=== PATIENT | female | born 1940 | race Caucasian/White ===

== ENCOUNTER 2017-03-11 19:28 | Inpatient (IN) | payer MEDICARE, OTHER ==
[~2017-03-11] VITALS: Ht 160 cm; Wt 92.6 kg
[~2017-03-11 19:28] MED LIST: ABILIFY10 MG PO; ALENDRONATE SOD70 M1 PO; ALLEGRA180 MG PO; AMBIEN10 M1 PO; AMBIEN10 MG PO; AMITIZA8 MCG PO; AMITRIPTYLINE50 MG PO; APLISOL5 TU/0.1 M ID; ASPI-COR81 M1 PO; ASPIRIN ADULT L81 M1 PO; ASPIRIN81 M1; ASPIRIN81 M1 PO; ATIVAN0.5 MG PO; ATIVAN1 MG PO; AUGMENTIN 875 M1 TA1 PO; AUGMENTIN 875 M1 TAB PO; AURALGAN 14 ML14 ML OT; BACTRIM DS 8001 TA1 PO; BACTROBAN OINT0.9 GM PO; BACTROBAN2% TP; BENICAR40 MG PO; BENTYL20 MG; BRIN10TA PO; BRIN20TA PO; CARAFATE1 G1 PO; CARAFATE1 GM PO; CEFEPIME1 GM IV; CEFTRIAXONE1 GM IV; CELEXA10 MG PO; CIPRO XR500 MG PO; CIPRO250 MG PO; CIPRO500 MG PO; CIPRODEX 0.3%-7.5 ML OT; CIPROFLOXACIN500 MG PO; CLONIDINE0.3 MG PO; COLACE100 MG PO; COREG25 MG; COREG25 MG PO; COREG3.125 MG PO; COREG6.25 MG PO; DARVOCET N 1001 TAB PO; DIPHENHYDRAMINE25 M1 PO; DULCOLAX10 MG R; ERYTHROMYCIN250 MG PO; FLEET ENEMA 13135 ML R; GABAPENTIN300 MG PO; GLUCERNA 1.5 C237 ML PO; GLUCOSAMINE & C1 TE1 PO; HALDOL1 MG; HALDOL1 MG PO; HUMULIN; HUMULIN SC; K-DUR 1010 MEQ; K-DUR 1010 MEQ PO; K-Dur 20MEQ20 MEQ PO; LASIX40 MG; LASIX40 MG PO; LEVAQUIN250 MG PO; LEVEMIR100 U/ML SC; LEVOTHYROXINE0.05 MG PO; LISINOPRIL2.5 MG PO; LISINOPRIL20 MG PO; LISINOPRIL40 MG; LISINOPRIL40 MG PO; LISINOPRIL5 MG PO; MACROBID100 M1 PO; MACRODANTIN100 MG PO; MEGACE40 MG PO; MELATONIN3 M1 PO; MIRALAX POWDER17 G1 PO; MIRALAX17 GM/DOSE PO; MIRALAX17 GM/PACK PO; MOM30 M1 PO; MOM30 ML; MOM30 ML PO; MOTRIN400 MG PO; MS CONTIN15 MG PO; Motrin,Rufen800 MG PO; NEURONTIN100 MG PO; NOVOLIN 701 UNIT/0.0 PO; NOVOLIN 701 UNIT/0.0 SC; NOVOLIN R100 U/ML; NOVOLIN R100 U/ML SC; NOVOLOG 701 UNIT/0.0 SC; NOVOLOG1 UNIT/0.0 SC; NS IV; NYSTATIN CREAM15 GM T; NYSTATIN OINTME30 GM PO; OMEPRAZOLE D/R20 MG PO; OMNICEF300 MG PO; OXYBUTYNIN CHLOR5 MG PO; OXYBUTYNIN5 MG PO; OYSTER SHELL CA PO; Ondansetron4 MG PO; PAMELOR25 MG PO; PANTOPRAZOLE40 M1 PO; PHOSPHA 250 NEU1 TAB PO; PRILOSEC40 MG PO; PROSTAT PO; PROTONIX40 MG; PROTONIX40 MG PO; Phenergan25 MG PO; REGLAN; REGLAN10 MG; REGLAN10 MG PO; REGLAN5 MG PO; REMERON15 MG; REMERON15 MG PO; SEROQUEL XR50 MG PO; STRESS TABLETS1 TAB PO; SYNTHROID,LEVO75 MCG PO; SYNTHROID0.05 MG PO; SYNTHROID0.3 MG PO; Synthroid,Lev200 MCG; Synthroid,Lev200 MCG PO; TIGAN300 MG PO; TIROSINT50 MCG PO; TRAMADOL HCL50 MG PO; TRANSDERM0.33 MG/24 T; TRAZODO50 MG PO; TYLENOL500 MG PO; ULTRAM50 MG PO; VICODIN 5/500 505 MG; VICODIN 5/500 505 MG PO; VITAMIN D3 PO; VITAMIN D5000 I2; VITAMIN D5000 I2 PO; WELLBUTRIN XL300 MG PO; Wellbutrin Xl150 MG PO; XANAX0.25 MG PO; ZOFRAN ODT4 MG SL; ZOFRAN4 MG PO; ZOLOFT100 MG PO; ZOLOFT50 MG PO; Zestril,Prinivi40 MG PO; Zofran4 MG PO; [UNRECOGNIZED DRUG - CODE]; [UNRECOGNIZED DRUG - CODE] PO; [UNRECOGNIZED DRUG - OTHER]; [UNRECOGNIZED DRUG - OTHER] IV; [UNRECOGNIZED DRUG - OTHER] PO; [UNRECOGNIZED DRUG - OTHER] PO; [UNRECOGNIZED DRUG - REMARK]
[2017-03-11 19:50] LABS: BILIRUBIN NEGATIVE (NEGATIVE); BLOOD 2+ (NEGATIVE); CLARITY CLOUDY (CLEAR); COLOR YELLOW (YELLOW); GLUCOSE NEGATIVE (NEGATIVE); KETONE NEGATIVE (NEGATIVE); LEUKO ESTERASE 2+ (NEGATIVE); NITRITE NEGATIVE (NEGATIVE); PROTEIN 2+ (NEGATIVE); SPECIFIC GRAVITY 1.025 (1.005-1.030); UROBILINOGEN 0.2 E.U./dl (0.2-1.0)
[2017-03-11 19:59] LABS: URINE REFLEX COMMENT YES (NO)
[2017-03-11 20:00] LABS: BACTERIA 3+; WBC 51-100 wbc/hpf (0-5)
[2017-03-11 20:48] VITALS: BP 149/91
[2017-03-11 20:52] LABS: BASO # 0.1 10*3/uL (0.0-0.1); BASO % 0.5 % (0.0-1.0); EOS # 0.1 10*3/uL (0.0-0.4); EOS % 0.8 % (1.0-4.0); HEMATOCRIT 44.3 % (37.0-47.0); HEMOGLOBIN 14.1 g/dl (12.0-16.0); IG # 0.1 10*3/uL (0.0-0.1); LYMPH # 1.9 10*3/uL (1.3-4.4); LYMPH % 12.7 % (27.0-41.0); MEAN CELL VOLUME 81.6 fl (81.0-99.0); MEAN CORPUSCULAR HGB CONC 31.8 g/dl (33.0-37.0); MEAN PLATELET VOLUME 11.3 fl (9.6-12.3); MONO # 0.8 10*3/uL (0.1-1.0); MONO % 5.6 % (3.0-9.0); NEUT % 79.9 % (47.0-73.0); PLATELET COUNT AUTOMATED 169 10*3/uL (130-400); RED BLOOD COUNT 5.43 10*6/uL (4.10-5.10); RED CELL DISTRI WIDTH 15.1 % (0-14.5); WHITE BLOOD COUNT 15.1 10*3/uL (4.8-10.8)
[2017-03-11] MEDS ORDERED: ATIVAN0.5 MG PO (20:52)
[2017-03-11] MEDS ORDERED: LIPITOR10 MG PO (20:53)
[2017-03-11] MEDS ORDERED: KLONOPIN0.5 MG PO (20:54)
[2017-03-11] MEDS ORDERED: LEVEMIR10 ML SC (20:55)
[2017-03-11 21:09] LABS: ALKALINE PHOSPHATASE 112 U/L (45-117); BILIRUBIN, TOTAL 0.6 mg/dl (0.2-1.0); BUN 13 mg/dl (7-24); CARBON DIOXIDE 26 mmol/L (21-32); CHLORIDE 100 mmol/L (98-107); EST GLOM FILT AFRICAN AMERICAN > 60 ml/min; GLUCOSE 184 mg/dL (65-99); POTASSIUM 4.8 mmol/L (3.5-5.1); SGOT/AST 36 IU/L (3-35); SGPT/ALT 17 U/L (12-78); SODIUM 136 mmol/L (136-145); TOTAL PROTEIN 7.2 gm/dL (6.4-8.2)
[2017-03-11] MEDS ORDERED: FAMOTIDINE40 MG PO (21:18)
[2017-03-11 22:54] VITALS: BP 112/49
[2017-03-12 00:30] VITALS: BP 162/68
[2017-03-12] MEDS ORDERED: CELEXA20 MG PO (01:01)
[2017-03-12] MEDS ORDERED: MELATONIN PO (01:02)
[2017-03-12] MEDS ORDERED: SYNTHROID,LEV175 MCG PO (01:05)
[2017-03-12] MEDS ORDERED: K-LOR 20MEQ20 ME1 PO (01:07)
[2017-03-12] MEDS ORDERED: VITAMIN D5000 I3 PO (01:08)
[2017-03-12 05:58] LABS: BASO # 0.1 10*3/uL (0.0-0.1); BASO % 0.4 % (0.0-1.0); EOS % 0.1 % (1.0-4.0); HEMOGLOBIN 12.2 g/dl (12.0-16.0); IG # 0.1 10*3/uL (0.0-0.1); LYMPH # 2.6 10*3/uL (1.3-4.4); MEAN CELL VOLUME 81.8 fl (81.0-99.0); MEAN CORPUSCULAR HGB 26.2 pg (27.0-31.0); MEAN PLATELET VOLUME 11.3 fl (9.6-12.3); MONO # 0.9 10*3/uL (0.1-1.0); MONO % 6.5 % (3.0-9.0); NEUT # 10.6 10*3/uL (2.3-7.9); NEUT % 74.6 % (47.0-73.0); PLATELET COUNT AUTOMATED 172 10*3/uL (130-400); RED BLOOD COUNT 4.66 10*6/uL (4.10-5.10); RED CELL DISTRI WIDTH 15.3 % (0-14.5); WHITE BLOOD COUNT 14.3 10*3/uL (4.8-10.8)
[2017-03-12 06:06] LABS: HEMATOCRIT 38.1 % (37.0-47.0)
[2017-03-12 06:31] LABS: ALBUMIN 2.5 gm/dl (3.1-4.5); BILIRUBIN, TOTAL 0.4 mg/dl (0.2-1.0); BUN 11 mg/dl (7-24); CARBON DIOXIDE 28 mmol/L (21-32); CHLORIDE 102 mmol/L (98-107); EST GLOM FILT AFRICAN AMERICAN > 60 ml/min; GLUCOSE 199 mg/dL (65-99); MAGNESIUM 1.5 mg/dL (1.5-2.1); PHOSPHOROUS 2.8 mg/dL (2.5-4.9); SGOT/AST 20 IU/L (3-35); SGPT/ALT 13 U/L (12-78); SODIUM 139 mmol/L (136-145); TOTAL PROTEIN 6.2 gm/dL (6.4-8.2)
[2017-03-12 06:39] LABS: ALKALINE PHOSPHATASE 94 U/L (45-117); FREE T4 1.04 ng/dl (0.76-1.46)
[2017-03-12 06:41] LABS: POTASSIUM 3.6 mmol/L (3.5-5.1)
[2017-03-12 06:54] LABS: HEMOGLOBIN A1c 7.2 % (4.8-5.6)
[2017-03-12 07:58] LABS: VITAMIN D, 25-HYDROXY 39.3 ng/mL (30-100)
[2017-03-12 07:59] LABS: FOLIC ACID 7.92 ng/mL (>5.38)
[2017-03-12 08:00] VITALS: BP 124/66
[2017-03-12 12:00] VITALS: BP 134/55
[2017-03-12 16:00] VITALS: BP 119/56
[2017-03-12 20:00] VITALS: BP 141/66
[2017-03-13] VITALS: BP 137/49
[2017-03-13 06:56] LABS: BASO # 0.1 10*3/uL (0.0-0.1); BASO % 0.7 % (0.0-1.0); EOS # 0.4 10*3/uL (0.0-0.4); EOS % 3.6 % (1.0-4.0); HEMATOCRIT 34.3 % (37.0-47.0); HEMOGLOBIN 10.9 g/dl (12.0-16.0); LYMPH # 2.8 10*3/uL (1.3-4.4); LYMPH % 28.6 % (27.0-41.0); MEAN CELL VOLUME 83.9 fl (81.0-99.0); MEAN CORPUSCULAR HGB 26.7 pg (27.0-31.0); MEAN CORPUSCULAR HGB CONC 31.8 g/dl (33.0-37.0); MEAN PLATELET VOLUME 11.4 fl (9.6-12.3); MONO % 10.1 % (3.0-9.0); NEUT # 5.5 10*3/uL (2.3-7.9); NEUT % 56.6 % (47.0-73.0); PLATELET COUNT AUTOMATED 132 10*3/uL (130-400); RED BLOOD COUNT 4.09 10*6/uL (4.10-5.10); RED CELL DISTRI WIDTH 15.3 % (0-14.5); WHITE BLOOD COUNT 9.7 10*3/uL (4.8-10.8)
[2017-03-13 06:58] LABS: BUN 14 mg/dl (7-24); CARBON DIOXIDE 26 mmol/L (21-32); CHLORIDE 105 mmol/L (98-107); EST GLOM FILT AFRICAN AMERICAN > 60 ml/min; GLUCOSE 140 mg/dL (65-99); POTASSIUM 3.4 mmol/L (3.5-5.1); SODIUM 139 mmol/L (136-145)
[2017-03-13 08:00] VITALS: BP 158/55
[2017-03-13 12:00] VITALS: BP 147/55
[2017-03-13 16:00] VITALS: BP 156/96
[2017-03-13 20:00] VITALS: BP 148/64
[2017-03-14] VITALS: BP 158/66
[2017-03-14 06:03] LABS: BASO # 0.1 10*3/uL (0.0-0.1); BASO % 0.8 % (0.0-1.0); EOS # 0.3 10*3/uL (0.0-0.4); EOS % 2.4 % (1.0-4.0); HEMATOCRIT 36.2 % (37.0-47.0); HEMOGLOBIN 11.2 g/dl (12.0-16.0); LYMPH # 3.5 10*3/uL (1.3-4.4); MEAN CELL VOLUME 83.8 fl (81.0-99.0); MEAN CORPUSCULAR HGB 25.9 pg (27.0-31.0); MEAN CORPUSCULAR HGB CONC 30.9 g/dl (33.0-37.0); MEAN PLATELET VOLUME 11.4 fl (9.6-12.3); MONO % 9.1 % (3.0-9.0); NEUT # 5.8 10*3/uL (2.3-7.9); NEUT % 54.4 % (47.0-73.0); PLATELET COUNT AUTOMATED 148 10*3/uL (130-400); RED BLOOD COUNT 4.32 10*6/uL (4.10-5.10); RED CELL DISTRI WIDTH 15.1 % (0-14.5); WHITE BLOOD COUNT 10.6 10*3/uL (4.8-10.8)
[2017-03-14 06:17] LABS: BUN 11 mg/dl (7-24); CARBON DIOXIDE 27 mmol/L (21-32); CHLORIDE 104 mmol/L (98-107); EST GLOM FILT AFRICAN AMERICAN > 60 ml/min; GLUCOSE 125 mg/dL (65-99); POTASSIUM 3.7 mmol/L (3.5-5.1); SODIUM 139 mmol/L (136-145)
[2017-03-14 08:00] VITALS: BP 162/66
[2017-03-14 12:00] VITALS: BP 164/61
[2017-03-14 16:00] VITALS: BP 166/63
[2017-03-14 20:00] VITALS: BP 160/62
[2017-03-15] VITALS: BP 172/82
[2017-03-15 00:30] VITALS: BP 158/68
[2017-03-15 08:00] VITALS: BP 172/75
[2017-03-15 12:00] VITALS: BP 166/72
[2017-03-15] MEDS ORDERED: ATIVAN0.5 MG PO (13:25)
[2017-03-15] MEDS ORDERED: LISINOPRIL10 M1 PO (13:25)
[2017-03-15] MEDS ORDERED: HUMALOG100 U/ML SC (13:25)
[2017-03-15] MEDS ORDERED: CLOPIDOGREL75 MG PO (13:25)
[2017-03-15] MEDS ORDERED: LOPRESSOR25 MG PO (13:25)
== END 2017-03-15 16:39 | disposition other institution (70) | DRG 871 ==
LOC: ED 19:28 → EDHOLD 21:35 → 4E 21:35
PROVIDERS: Emergency Medicine; Family Medicine
DX: A41.9 Sepsis, unspecified organism (principal); G93.41 Metabolic encephalopathy; E44.0 Moderate protein-calorie malnutrition; I31.3 Pericardial effusion (noninflammatory); F03.91 Unspecified dementia, unspecified severity, with behavioral disturbance; I48.2 Chronic atrial fibrillation; I11.0 Hypertensive heart disease with heart failure; I50.9 Heart failure, unspecified; E66.01 Morbid (severe) obesity due to excess calories; E11.65 Type 2 diabetes mellitus with hyperglycemia; N30.01 Acute cystitis with hematuria; R65.20 Severe sepsis without septic shock; F31.9 Bipolar disorder, unspecified; F41.9 Anxiety disorder, unspecified; I25.10 Atherosclerotic heart disease of native coronary artery without angina pectoris; K21.9 Gastro-esophageal reflux disease without esophagitis; B96.4 Proteus (mirabilis) (morganii) as the cause of diseases classified elsewhere; M19.90 Unspecified osteoarthritis, unspecified site; E03.9 Hypothyroidism, unspecified; E78.5 Hyperlipidemia, unspecified; E11.43 Type 2 diabetes mellitus with diabetic autonomic (poly)neuropathy; I07.1 Rheumatic tricuspid insufficiency; K31.84 Gastroparesis; E55.9 Vitamin D deficiency, unspecified; G89.29 Other chronic pain; Z95.0 Presence of cardiac pacemaker; Z79.4 Long term (current) use of insulin; Z68.36 Body mass index [BMI] 36.0-36.9, adult; Z91.041 Radiographic dye allergy status; Z91.048 Other nonmedicinal substance allergy status; Z88.6 Allergy status to analgesic agent; Z79.82 Long term (current) use of aspirin; Z79.899 Other long term (current) drug therapy; Z86.73 Personal history of transient ischemic attack (TIA), and cerebral infarction without residual deficits; Z87.440 Personal history of urinary (tract) infections; Z98.891 History of uterine scar from previous surgery; Z90.49 Acquired absence of other specified parts of digestive tract; Z83.3 Family history of diabetes mellitus; Z82.49 Family history of ischemic heart disease and other diseases of the circulatory system

== ENCOUNTER 2017-04-18 21:52 | Inpatient (IN) | payer MEDICARE, OTHER ==
[~2017-04-18] VITALS: Ht 160 cm; Wt 81.7 kg
[~2017-04-18 21:52] MED LIST changes: +CELEXA20 MG PO; +CLOPIDOGREL75 MG PO; +FAMOTIDINE40 MG PO; +HUMALOG100 U/ML SC; +KLONOPIN0.5 MG PO; +KLOR-CON M2020 ME1 PO; +LEVEMIR100 UNIT/1 SC; +LIPITOR10 MG PO; +LISINOPRIL10 M1 PO; +LOPRESSOR25 MG PO; +MELATONIN PO; +SYNTHROID,LEV175 MCG PO; +VITAMIN D5000 I3 PO
[2017-04-18 22:25] LABS: HEMATOCRIT 46.9 % (37.0-47.0); HEMOGLOBIN 14.9 g/dl (12.0-16.0); MEAN CELL VOLUME 82.9 fl (81.0-99.0); MEAN CORPUSCULAR HGB 26.3 pg (27.0-31.0); MEAN CORPUSCULAR HGB CONC 31.8 g/dl (33.0-37.0); MEAN PLATELET VOLUME 10.9 fl (9.6-12.3); PLATELET COUNT AUTOMATED 325 10*3/uL (130-400); RED BLOOD COUNT 5.66 10*6/uL (4.10-5.10); RED CELL DISTRI WIDTH 16.5 % (0-14.5); WHITE BLOOD COUNT 13.8 10*3/uL (4.8-10.8)
[2017-04-18 22:42] VITALS: BP 107/79
[2017-04-18 22:42] LABS: ACT PARTIAL THROMBO TIME 23.7 SECONDS (20.8-31.5); ALBUMIN 2.8 gm/dl (3.1-4.5); ALKALINE PHOSPHATASE 127 U/L (45-117); BUN 25 mg/dl (7-24); CHLORIDE 104 mmol/L (98-107); CREATININE 1.07 mg/dL (0.55-1.02); INTERNATIONAL NORM RATIO 1.1 (2.0-3.5); MAGNESIUM 2.2 mg/dL (1.5-2.1); POTASSIUM 4.7 mmol/L (3.5-5.1); SGOT/AST 23 IU/L (3-35); SGPT/ALT 17 U/L (12-78); SODIUM 141 mmol/L (136-145); TOTAL PROTEIN 7.2 gm/dL (6.4-8.2)
[2017-04-18 22:46] LABS: BASOPHILS 2 % (0-1); TOTAL CELLS COUNTED 100 #CELLS
[2017-04-18 22:47] LABS: PLATELET SUFFICIENCY NORMAL (NORMAL)
[2017-04-18 22:48] LABS: OVALOCYTES FEW
[2017-04-18 23:00] VITALS: BP 58/38
[2017-04-18 23:17] LABS: ABG BASE EXCESS -2.8 mmol/L (-2.0-2.0); ABG O2 SATURATION 99.2 % (95-97); ARTERIAL BLOOD GAS PH 7.385 (7.35-7.45)
[2017-04-18 23:30] VITALS: BP 131/72
[2017-04-19] VITALS (21 sets, daily range): BP systolic 90–137; BP diastolic 35–80
[2017-04-19 02:25] LABS: ABG BASE EXCESS -6.5 mmol/L (-2.0-2.0); ABG O2 SATURATION 99.2 % (95-97); ARTERIAL BLOOD GAS PCO2 41.3 mmHg (35-45); ARTERIAL BLOOD GAS PH 7.293 (7.35-7.45)
[2017-04-19] MEDS ORDERED: PRO-STAT PO (02:57)
[2017-04-19] MEDS ORDERED: DIAPER RASH57 GM T (02:58)
[2017-04-19 03:09] LABS: BILIRUBIN NEGATIVE (NEGATIVE); BLOOD 3+ (NEGATIVE); CLARITY TURBID (CLEAR); COLOR YELLOW (YELLOW); GLUCOSE NEGATIVE (NEGATIVE); KETONE TRACE (NEGATIVE); LEUKO ESTERASE 2+ (NEGATIVE); NITRITE NEGATIVE (NEGATIVE); PH 5.5 (5.0-9.0); SPECIFIC GRAVITY >= 1.030 (1.005-1.030)
[2017-04-19] MEDS ORDERED: HALDOL5 MG/1 ML IM (03:10)
[2017-04-19] MEDS ORDERED: HALDOL0.5 MG PO (03:11)
[2017-04-19] MEDS ORDERED: HYDROCHLOROTHIA25 M1 PO (03:12)
[2017-04-19] MEDS ORDERED: IBU-200200 MG PO (03:13)
[2017-04-19] MEDS ORDERED: LEVEMIR100 UNIT/1 SC (03:15)
[2017-04-19] MEDS ORDERED: LISINOPRIL20 MG PO (03:16)
[2017-04-19] MEDS ORDERED: METOPROLOL TART50 M1 PO (03:17)
[2017-04-19] MEDS ORDERED: MOBIC15 MG PO (03:18)
[2017-04-19] MEDS ORDERED: NORVASC5 MG PO (03:19)
[2017-04-19 03:20] LABS: BACTERIA 4+; EPITHELIAL CELLS 15-20; RBC TNTC rbc/hpf (0-2); WBC TNTC wbc/hpf (0-5)
[2017-04-19] MEDS ORDERED: OYSTERCAL-D 501 EACH PO (03:21)
[2017-04-19 06:12] LABS: HEMATOCRIT 42.2 % (37.0-47.0); HEMOGLOBIN 13.3 g/dl (12.0-16.0); MEAN CELL VOLUME 85.4 fl (81.0-99.0); MEAN CORPUSCULAR HGB 26.9 pg (27.0-31.0); MEAN CORPUSCULAR HGB CONC 31.5 g/dl (33.0-37.0); MEAN PLATELET VOLUME 10.8 fl (9.6-12.3); PLATELET COUNT AUTOMATED 266 10*3/uL (130-400); RED BLOOD COUNT 4.94 10*6/uL (4.10-5.10); WHITE BLOOD COUNT 16.6 10*3/uL (4.8-10.8)
[2017-04-19 06:30] LABS: BUN 25 mg/dl (7-24); CHLORIDE 113 mmol/L (98-107); CREATININE 1.03 mg/dL (0.55-1.02); MAGNESIUM 1.7 mg/dL (1.5-2.1); PHOSPHOROUS 4.7 mg/dL (2.5-4.9); SODIUM 142 mmol/L (136-145)
[2017-04-19 07:06] LABS: INTERNATIONAL NORM RATIO 1.2 (2.0-3.5)
[2017-04-19 07:27] LABS: BURR CELLS MODERATE; PLATELET SUFFICIENCY NORMAL (NORMAL); TOTAL CELLS COUNTED 100 #CELLS
[2017-04-19] MEDS ORDERED: PLAVIX75 M1 PO (09:08)
[2017-04-19 13:30] LABS: ABG HCO3 17.6 mmol/l (22-26); ABG O2 SATURATION 96.8 % (95-97); ARTERIAL BLOOD GAS PCO2 34.4 mmHg (35-45); ARTERIAL BLOOD GAS PH 7.329 (7.35-7.45); ARTERIAL BLOOD GAS PO2 95.5 mmHg (80-90)
[2017-04-19 13:32] LABS: ABG BASE EXCESS -7.1 mmol/L (-2.0-2.0)
== END 2017-04-19 19:46 | disposition short-term general hospital (02) | DRG 871 ==
LOC: ED 21:52 → ICCU 23:51 → EDHOLD 23:51 → ICCU 04-19 02:07
PROVIDERS: Internal Medicine; Physician Assistant; ADMIT Internal Medicine
PROC: 5A09357 Assistance with Respiratory Ventilation, Less than 24 Consecutive Hours, Continuous Positive Airway Pressure (ICD-10-PCS; principal; 2017-04-18)
PROC: 05H633Z Insertion of Infusion Device into Left Subclavian Vein, Percutaneous Approach (ICD-10-PCS; 2017-04-19)
PROC: 0BH17EZ Insertion of Endotracheal Airway into Trachea, Via Natural or Artificial Opening (ICD-10-PCS; 2017-04-19)
DX: A41.9 Sepsis, unspecified organism (principal); R65.21 Severe sepsis with septic shock; J96.01 Acute respiratory failure with hypoxia; N17.0 Acute kidney failure with tubular necrosis; J69.0 Pneumonitis due to inhalation of food and vomit; G93.41 Metabolic encephalopathy; E43 Unspecified severe protein-calorie malnutrition; J44.1 Chronic obstructive pulmonary disease with (acute) exacerbation; F03.91 Unspecified dementia, unspecified severity, with behavioral disturbance; N39.0 Urinary tract infection, site not specified; F41.9 Anxiety disorder, unspecified; M19.90 Unspecified osteoarthritis, unspecified site; F31.9 Bipolar disorder, unspecified; I25.10 Atherosclerotic heart disease of native coronary artery without angina pectoris; I50.9 Heart failure, unspecified; G89.29 Other chronic pain; K21.9 Gastro-esophageal reflux disease without esophagitis; E78.5 Hyperlipidemia, unspecified; I11.0 Hypertensive heart disease with heart failure; E03.9 Hypothyroidism, unspecified; I48.2 Chronic atrial fibrillation; E66.01 Morbid (severe) obesity due to excess calories; E11.65 Type 2 diabetes mellitus with hyperglycemia; E83.41 Hypermagnesemia; E87.8 Other disorders of electrolyte and fluid balance, not elsewhere classified; Z88.6 Allergy status to analgesic agent; Z88.8 Allergy status to other drugs, medicaments and biological substances; Z91.041 Radiographic dye allergy status; Z91.048 Other nonmedicinal substance allergy status; Z95.0 Presence of cardiac pacemaker; Z82.49 Family history of ischemic heart disease and other diseases of the circulatory system; Z83.3 Family history of diabetes mellitus; Z98.891 History of uterine scar from previous surgery; Z90.49 Acquired absence of other specified parts of digestive tract; Z86.73 Personal history of transient ischemic attack (TIA), and cerebral infarction without residual deficits; Z79.82 Long term (current) use of aspirin; Z79.4 Long term (current) use of insulin; Z79.899 Other long term (current) drug therapy; Z68.31 Body mass index [BMI] 31.0-31.9, adult